=== PATIENT | female | born 1995 | race Hispanic/Latino ===

== ENCOUNTER 2019-01-13 09:36 | Day surgery (SDC) | payer OTHER ==
[2019-01-13 10:07] VITALS: BMI 32.5
[2019-01-13 10:36] LABS: Amnisure Test No Membranes Rupture (No Rupture)
[2019-01-13 10:37] LABS: Amnisure Internal Control QC ACCEPTABLE (ACCEPTABLE)
--- NOTE | 2019-01-13 14:31 | PRG ---
DATE OF SERVICE: 01/13/2019 PRIMARY OB: Dr. Suri Carson. CHIEF COMPLAINT: Leakage of fluid. HISTORY OF PRESENT ILLNESS: The patient is a 23-year-old G4, P3 female with an intrauterine at 35 weeks and a day, who presents to Labor and Delivery with leakage of fluid beginning yesterday morning. The patient reports that she has been feeling wet and that she has had a couple of drips while in the bathroom. She also reports that she has felt something running down her leg. The patient denies vaginal bleeding. She denies uterine contractions. She denies any recent illness, fever, fall, headache, chest pain, shortness of breath, nausea, vomiting, diarrhea, constipation, hip problems, knee problems, muscle weakness, urinary urgency. PAST MEDICAL HISTORY: Negative. PAST SURGICAL HISTORY: Negative. SOCIAL HISTORY: Denies drug, alcohol, or tobacco use. ALLERGIES: NO KNOWN DRUG ALLERGIES. MEDICATIONS: vitamins. OB LABS: Blood type is O positive. Antibody screen is negative. VDRL is nonreactive. Hepatitis B surface antigen is nonreactive. She is rubella immune. One-hour Glucola is 87. Third trimester RPR is nonreactive and HIV is nonreactive. REVIEW OF SYSTEMS: Per HPI. PHYSICAL EXAMINATION: VITAL SIGNS: Blood pressure is 122/71, heart rate of 100, respiratory rate of 18, saturating 100% on room air, temperature 98.5. GENERAL: She appears to be in no acute distress. She is alert, oriented, cooperative, and pleasant to interact with. HEAD: Normocephalic, atraumatic. LUNGS: Clear to auscultation bilaterally. HEART: Has a regular rate and rhythm. ABDOMEN: Gravid, soft, nontender. EXTREMITIES: Nontender, nonedematous. PELVIS: Vulva is without masses, lesions, or erythema. She does seem to have a fairly moist perineum, but was also checked prior by the nurse with a speculum exam, the patient is noted to have a discharge along the vaginal wall and at the level of the cervix and also a mucousy discharge. The patient was asked to Valsalva and there was no pulling present. VPIII was collected. AmniSure was collected earlier by nursing staff and was negative. CERVICAL: Per nursing staff, cervix is closed and thick. DIAGNOSTIC DATA: heart tracing performed for leakage of fluid showed a baseline in the 140s with moderate long-term variability, positive 15 x 15 accelerations, no decelerations and tocometer showed no regular contractions. AmniSure test is negative. VPIII was positive for Gardnerella. Bedside ultrasound demonstrated JEWELL of 12 cm. ASSESSMENT AND PLAN: The patient is a 23-year-old multiparous female with an intrauterine at 35 weeks and a day, presenting with leakage of fluid. There is no evidence of rupture of membranes. She does appear to have bacterial vaginosis per the VPIII testing which could explain the increased discharge that she has been experiencing. The patient has been given the results and has been prescribed metronidazole 500 mg to be taken twice a day for the next 7 days. The patient has an appointment with her primary provider in one week, which we have encouraged that she keep. Labor precautions have been given to the patient. Job ID: [id number]
== END 2019-01-13 13:05 | disposition home health service (06) ==
LOC: L&D/OP 09:36
PROVIDERS: ATTEND Obstetrics & Gynecology
DX: O23.593 Infection of other part of genital tract in pregnancy, third trimester (principal); B96.89 Other specified bacterial agents as the cause of diseases classified elsewhere; Z3A.35 35 weeks gestation of pregnancy; Z79.899 Other long term (current) drug therapy
CPT/HCPCS: 84112; 87480; 87510; 87660; 99285

== ENCOUNTER 2019-02-13 05:30 | Inpatient (IN) | payer OTHER ==
[2019-02-13] MEDS ORDERED: Ondansetron PF 4 MG/2 ML Vial IVP PRN (06:44)
[2019-02-13] MEDS ORDERED: Butorphanol Tartrate 1 MG/ML VIAL SLOW IVP PRN (06:44)
[2019-02-13] MEDS ORDERED: HYDROcodone/Acetaminophen 5/325 mg Tablet PO PRN (06:44)
[2019-02-13] MEDS ORDERED: Misoprostol 200 MCG TAB PR PRN (06:44)
[2019-02-13] MEDS ORDERED: Ibuprofen 800 MG TAB PO PRN (06:44)
[2019-02-13] MEDS ORDERED: Lidocaine 1% (PF) 30 ML VIAL SC PRN (06:44)
[2019-02-13] MEDS ORDERED: Promethazine HCl 25 MG/ML VIAL IM PRN (06:44)
[2019-02-13] MEDS ORDERED: Acetaminophen 500 MG TAB PO PRN (06:44)
[2019-02-13] MEDS ORDERED: NS w/ Oxytocin 10 units 500 ML IV SCH (06:44)
[2019-02-13 06:53] VITALS: BMI 33.6
[2019-02-13] MEDS: Lactated Ringer's 1,000 ML IV SCH ×2 (07:15→08:39)
[2019-02-13] MEDS ORDERED: Fentanyl 4 mcg/Bup 0.1% Cadd 100 ML ONE (07:34)
[2019-02-13 07:36] LABS: Hemoglobin 12.8 g/dL (12.0-16.0); Mean Corpuscular HGB CONC 33.5 g/dL (32.0-36.0); Mean Corpuscular Hemoglobin 29.4 pg (27.0-31.0); Mean Corpuscular Volume 87.7 fL (78.0-98.0); Mean Platelet Volume 9.2 fL (7.4-10.4); Platelet Count 268 thou/uL (130-400); RBC Distribution Width 13.3 % (11.5-14.5); Red Blood Cell (RBC) Count 4.34 mill/uL (4.20-5.40); White Blood Cell (WBC) Count 10.1 thou/uL (4.8-10.8)
[2019-02-13 08:13] LABS: HBSAg Index 0.28 S/CO (0-0.99); Hep B Surf Ag Non-Reactive S/CO (NonReactive)
[2019-02-13 08:14] LABS: Syphilis Antibody Nonreactive (Nonreactive); Syphilis Antibody Index 0.05 S/CO (<1.00 Non-Reactive)
[2019-02-13] MEDS: NS / Oxytocin 40 units/1000ml 1,000 ML IV PRN ×2 (10:29→11:46)
[2019-02-13] MEDS ORDERED: diphenhydrAMINE 25 MG CAP PO PRN (10:40)
[2019-02-13] MEDS ORDERED: Adacel (T-DAP) 0.5 ML SYRINGE IM ONE (10:40)
[2019-02-13] MEDS ORDERED: traMADol HCl 50 MG TAB PO PRN (10:40)
[2019-02-13] MEDS ORDERED: Bisacodyl 10 MG SUPP PR PRN (10:40)
[2019-02-13] MEDS ORDERED: Benzocaine-Menthol 82.5 ML CAN TOP PRN (10:40)
[2019-02-13] MEDS ORDERED: Milk Of Magnesia 30 ML UDCUP PO PRN (10:40)
[2019-02-13] MEDS ORDERED: Preparation H Ointment 28 GM TUBE PR PRN (10:40)
--- NOTE | 2019-02-13 10:42 | PDOC.OPDEL ---
OB Operative/Delivery Note Delivery Dr/Surgeon: Alli Pre-Delivery Diagnosis: active labor Procedure/Post Delivery Dx: spontaneous vaginal delivery Weeks gestation: 39 Anesthesia: epidural - Additional Findings/Plan Placenta delivered: spontaneous Repaired Obstetrical Laceration: none Estimated blood loss: 115 qbl Post delivery plan: routine recovery (nuchal cord x 1 -clamped and cut for delivery.)
[2019-02-13] MEDS ORDERED: NS / Oxytocin 40 units/1000ml 1,000 ML IV SCH (10:45)
[2019-02-13] MEDS: Ibuprofen 800 MG TAB PO SCH ×2 (12:59→20:08)
[2019-02-13] MEDS ORDERED: Bupivacaine PF 0.5% 30 ML VIAL ONE (15:00)
[2019-02-13] MEDS ORDERED: Bupivacaine/Epinephrine 0.25% 30 ML VIAL ONE (15:00)
[2019-02-13] MEDS ORDERED: Ferrous Sulfate 325 MG TAB PO SCH (17:00)
[2019-02-13] MEDS: Docusate Calcium (SURFAK) 240 MG CAP PO SCH (20:08)
[2019-02-14 06:39] VITALS: TEMP 97.8
--- NOTE | 2019-02-14 07:23 | PDOC.PP ---
Post Progress Note Post Day #: 1 Subjective: Ready to go home. Feedings going well. PO intake tolerated: yes Flatus: yes Ambulation: yes Vital Signs (12 hours) Temp Pulse Resp BP Pulse Ox 02/14/19 04:00 97.8 F 68 17 125/65 02/13/19 20:00 97.8 F 66 17 122/74 100 Weight Weight 228 lb - Physical Examination Abdominal: + bowel sounds, lochia, no distention, appropriately TTP Result Diagrams: 02/13/19 07:21 Additional Labs: Post Labs Blood Type O POSITIVE 02/13/19 07:21 Hep Bs Antigen Non-Reactive S/CO (NonReactive) 02/13/19 07:21 - Assessment/Plan Doing well post day 1. Discharge home. Follow up in 6 weeks. OTC ibuprofen for pain.
[2019-02-14] MEDS: Ibuprofen 800 MG TAB PO SCH (07:53)
[2019-02-14] MEDS: Docusate Calcium (SURFAK) 240 MG CAP PO SCH (07:54)
[2019-02-14 08:13] VITALS: BP 130/64
== END 2019-02-14 14:20 | disposition home or self-care (01) | DRG 807 ==
LOC: L&D 06:13 → 3SW 13:27
PROVIDERS: ADMIT Obstetrics & Gynecology; ATTEND Obstetrics & Gynecology
PROC: 10E0XZZ Delivery of Products of Conception, External Approach (ICD-10-PCS; principal; 2019-02-14)
DX: O69.81X0 Labor and delivery complicated by cord around neck, without compression, not applicable or unspecified (principal); Z37.0 Single live birth; Z3A.39 39 weeks gestation of pregnancy
CPT/HCPCS: 36415; 51702; 85027; 86780; 86850; 86900; 86901; 87340; 90715; S0020

== ENCOUNTER 2022-11-17 01:32 | Emergency (ER) | payer OTHER, SELFPAY ==
[2022-11-17 02:44] LABS: Hemoglobin 15.1 g/dL (12.0-16.0); Mean Corpuscular HGB CONC 33.6 g/dL (32.0-36.0); Mean Corpuscular Hemoglobin 30.6 pg (27.0-31.0); Mean Platelet Volume 7.8 fL (7.4-10.4); Platelet Count 332 10x3/uL (130-400); RBC Distribution Width 11.7 % (11.5-14.5); Red Blood Cell (RBC) Count 4.93 mill/uL (4.20-5.40)
[2022-11-17 02:59] LABS: ALT (SGPT) 40 U/L (8-55); AST (SGOT) 21 U/L (5-34); Albumin 4.4 g/dL (3.5-5.0); Alkaline Phosphatase 64 U/L (40-110); Anion Gap 14 mmol/L (10-20); BUN (Urea Nitrogen) 18 mg/dL (7.0-18.7); Bilirubin, Total 0.7 mg/dL (0.2-1.2); Calc. Creatinine Clearance 0 mL/min (70-130); Calcium 9.5 mg/dL (7.8-10.44); Carbon Dioxide 26 mmol/L (22-29); Chloride 105 mmol/L (98-107); Estimated GFR 91; Globulin 3.5 g/dL (2.4-3.5); Glucose 138 mg/dL (70-105); Lipase 5 U/L (8-78); Potassium 4.4 mmol/L (3.5-5.1); Protein, Total 7.9 g/dL (6.0-8.3); Sodium 141 mmol/L (136-145)
[2022-11-17 03:57] LABS: Band 1 % (5-11); Lymphocytes 6 % (21-51); MDiff Complete? YES; Monocytes 5 % (0-10); Neutrophil 88 % (42-75)
[2022-11-17] MEDS ORDERED: Ondansetron PF 4 MG/2 ML Vial ONE (04:00)
[2022-11-17] MEDS ORDERED: Ketorolac Tromethamine 30 MG/ML VIAL ONE (04:00)
[2022-11-17 04:31] LABS: BHCG - Serum Negative (NEGATIVE); Pregs Control Background? CLEAR/WHITE (CLR/WHITE); Pregs Control Bar Appear? YES (CONTROL BAR)
[2022-11-17] MEDS ORDERED: Piperacillin/Tazobactam 3.375 GM VIAL ONE (06:45)
[2022-11-17 07:03] LABS: Bacteria/HPF None Seen HPF (None Seen); Bilirubin Negative (Negative); Blood, Urine 1+ (Negative); Clarity Clear (Clear); Glucose, Urine (Dipstick) Normal (Negative); Ketone, Urine 10 mg/dL (Negative); Leukocyte Negative Leu/uL (Negative); Nitrite Negative (Negative); Protein, Urine (Dipstick) 20 mg/dL (Neg-Trace); Squamous Epithelial 0-3 HPF (0-3); Urobilinogen Normal mg/dL (Less than 2); WBC/HPF 0-3 HPF (0-3); pH, Urine 6.5 (5.0-9.0)
[2022-11-17 07:04] LABS: Specific Gravity, Urine Greater than 1.060 (1.002-1.036)
[2022-11-17] MEDS ORDERED: Iopamidol 370 76% 100 ML VIAL ONE (10:57)
== END 2022-11-17 07:45 | disposition home or self-care (01) ==
LOC: ERS 01:32
DX: K52.9 Noninfective gastroenteritis and colitis, unspecified (principal); D72.829 Elevated white blood cell count, unspecified
CPT/HCPCS: 36415; 74177; 80053; 81003; 81015; 83605; 83690; 84703; 85025; 96374; 96375; J1885; J2405; J2543; Q9967

== ENCOUNTER 2023-08-23 21:30 | Emergency (ER) | payer BC, OTHER ==
[2023-08-23] MEDS ORDERED: Metoclopramide HCl 10 MG/2 ML VIAL ONE (22:09)
[2023-08-23] MEDS ORDERED: diphenhydrAMINE 50 MG/ML VIAL ONE (22:09)
[2023-08-23] MEDS ORDERED: Ketorolac Tromethamine 30 MG/ML VIAL ONE (22:09)
[2023-08-23] MEDS ORDERED: methylPREDNISolone Sod Succ/PF 125 MG/2 ML VIAL ONE (22:10)
[2023-08-23 22:21] LABS: #Basophils 0.1 thou/uL (0.0-0.2); #Eosinphils 0.2 thou/uL (0.0-0.7); #Monocytes 0.5 thou/uL (0.11-0.59); #Neutrophils 7.9 thou/uL (1.40-6.50); %Basophils 0.5 % (0.0-1.0); %Eosinophils 1.6 % (0.0-10.0); %Lymphocytes 33.6 % (21.0-51.0); %Monocytes 4.1 % (0.0-10.0); %Neutrophils 59.9 % (42.0-75.0); Hematocrit 40.3 % (36.0-47.0); Hemoglobin 13.6 g/dL (12.0-16.0); Mean Corpuscular HGB CONC 33.7 g/dL (32.0-36.0); Mean Corpuscular Hemoglobin 29.2 pg (27.0-31.0); Mean Corpuscular Volume 86.5 fl (78.0-98.0); Mean Platelet Volume 9.7 fL (7.4-10.4); Platelet Count 404 10x3/uL (130-400); Red Blood Cell (RBC) Count 4.66 mill/uL (4.20-5.40); White Blood Cell (WBC) Count 13.2 10x3/uL (4.8-10.8)
[2023-08-23 22:34] LABS: BHCG - Serum Negative (NEGATIVE); Pregs Control Background? CLEAR/WHITE (CLR/WHITE); Pregs Control Bar Appear? YES (CONTROL BAR)
[2023-08-23 22:45] LABS: ALT (SGPT) 20 U/L (8-55); AST (SGOT) 18 U/L (5-34); Albumin 4.4 g/dL (3.5-5.0); Alkaline Phosphatase 77 U/L (40-110); Anion Gap 13 mmol/L (10-20); BUN (Urea Nitrogen) 15 mg/dL (7.0-18.7); Bilirubin, Total 0.3 mg/dL (0.2-1.2); Calc. Creatinine Clearance 0 mL/min (70-130); Calcium 9.3 mg/dL (7.8-10.44); Carbon Dioxide 25 mmol/L (22-29); Chloride 106 mmol/L (98-107); Estimated GFR 75; Globulin 3.5 g/dL (2.4-3.5); Glucose 137 mg/dL (70-105); Potassium 3.4 mmol/L (3.5-5.1); Protein, Total 7.9 g/dL (6.0-8.3); Sodium 141 mmol/L (136-145)
[2023-08-23 23:27] LABS: SARS-CoV-2 NAA Rapid Test Not Detected (NotDetected)
[2023-08-23 23:46] LABS: Bacteria/HPF None Seen HPF (None Seen); Bilirubin Negative (Negative); Blood, Urine 1+ (Negative); CAUTI Indications for Culture Alt mental st,lethar; Clarity Clear (Clear); Glucose, Urine (Dipstick) Normal (Negative); Ketone, Urine Negative (Negative); Leukocyte 75 Leu/uL (Negative); Nitrite Negative (Negative); Protein, Urine (Dipstick) 20 mg/dL (Neg-Trace); Specific Gravity, Urine 1.028 (1.002-1.036); Squamous Epithelial 0-3 HPF (0-3); Urobilinogen Normal mg/dL (Less than 2); WBC/HPF 21-50 HPF (0-3); pH, Urine 6.5 (5.0-9.0)
[2023-08-23 23:47] LABS: Urine Culture Reflex Yes Yes
== END 2023-08-24 00:53 | disposition home or self-care (01) ==
LOC: ERS 21:30
DX: R51.9 Headache, unspecified (principal); J32.9 Chronic sinusitis, unspecified; N39.0 Urinary tract infection, site not specified
CPT/HCPCS: 70450; 80053; 81001; 84703; 85025; 87077; 87086; 96361; 96374; 96375; J1200; J1885; J2765; J2930